=== PATIENT | male | born 1965 | race Caucasian/White ===

== ENCOUNTER 2021-01-17 17:06 | Emergency (ER) | payer MEDICAID ==
[~2021-01-17] VITALS: Ht 175.3 cm; Wt 83.6 kg
[2021-01-17 17:23] VITALS: BP 186/117
[2021-01-17] MEDS ORDERED: azithromycin 250mg tablet PO ONE (17:35)
[2021-01-17] MEDS ORDERED: CefTRIAXone 1000mg IM Kit (w/lidocaine diluent) IM ONE (17:35)
== END 2021-01-17 17:58 | disposition home or self-care (01) ==
LOC: ER 17:09
DX: Z11.3 Encounter for screening for infections with a predominantly sexual mode of transmission (principal)
CPT/HCPCS: 36415; 87491; 87591; 96372; 99283; J0696